=== PATIENT | female | born 1995 | race Asian ===

== ENCOUNTER 2016-06-24 12:54 | Emergency (ER) | payer MEDICAID ==
[2016-06-24] MEDS ORDERED: Acetaminophen 500 MG TAB ONE (14:03)
[2016-06-24 14:07] LABS: URINE COLOR ORANGE
[2016-06-24 14:08] LABS: URINE BILIRUBIN SMALL (NEGATIVE); URINE BLOOD SMALL (NEGATIVE); URINE GLUCOSE (UA) 100 mg/dL (NEGATIVE); URINE KETONE TRACE mg/dL (NEGATIVE); URINE PROTEIN 100 mg/dL (NEGATIVE)
[2016-06-24 14:10] LABS: URINE WBC 25-50 /hpf (0-5)
[2016-06-24 14:11] LABS: URINE BACTERIA MODERATE /hpf (NONE SEEN); URINE EPITHELIAL CELLS MODERATE /lpf (FEW)
[2016-06-24 14:15] LABS: % LYMPHOCYTES 4.6 % (20.0-50.0); % MONOCYTES 5.1 % (2.0-10.0); % NEUTROPHILS 89.8 % (40.0-80.0); HEMATOCRIT 37.9 % (35.0-45.0); HEMOGLOBIN 13.1 gm/dL (11.7-15.5); MEAN CELL VOLUME 83.4 fl (81-100); MEAN CORPUSCULAR HEMOGLOBIN 28.8 pg (27.0-31.0); MEAN CORPUSCULAR HGB CONC 34.5 pg (28.0-36.0); MEAN PLATELET VOLUME 7.9 fl; NEUTROPHILE ABSOLUTE 15.7 Th/cmm (1.8-8.0); PLATELET COUNT 281 Th/cmm (150-400); RED BLOOD COUNT 4.54 Mil/cmm (3.80-5.10); RED CELL DISTRIBUTION WIDTH 11.9 % (11.5-20.0)
[2016-06-24 14:21] LABS: INR 0.97 (0.5-1.4); PROTHROMBIN TIME (TEST) 10.1 SECONDS (9.5-11.5)
[2016-06-24 14:23] LABS: WHITE BLOOD COUNT 17.5 Th/cmm (4.8-10.8)
[2016-06-24 14:24] LABS: ALB/GLOB RATIO 1.3 (1.0-1.8); ALKALINE PHOSPHATASE 57 U/L (34-104); ANION GAP 12.8 (7.0-16.0); BILIRUBIN,TOTAL 0.8 mg/dL (0.3-1.0); BUN - UREA NITROGEN 10 mg/dL (7-25); BUN/CREATININE RATIO 16.7; CALCIUM SERUM 9.3 mg/dL (8.6-10.3); CARBON DIOXIDE 24.7 mEq/L (21.0-31.0); CHLORIDE 100 mEq/L (98-107); CREATININE - SERUM 0.6 mg/dL (0.6-1.2); GLUCOSE 100 mg/dL (70-105); POTASSIUM SERUM 3.5 mEq/L (3.5-5.1); SGOT 13 U/L (13-39); SGPT/ALT 10 U/L (7-52); SODIUM SERUM 134 mEq/L (136-145)
--- NOTE | 2016-06-24 14:36 | ED Physician Chart ---
Chief Complaint/HPI - Patient Information Date Seen:: 06/24/16 Time Seen:: 14:10 Chief Complaint:: BLOOD IN URINE History of Present Illness:: THIS IS A 20 YO FEMALE WITH BLOOD IN HER URINE AND TREATED WITH AZO BY HERSELF. SHE DENIES , VAGINAL DISCHARGE AND VOMITING. SHE DENIES FEVER COUGH AND SOB. SHE ADMITS TO PAINFUL URINATION. Allergies:: Allergies Allergy/AdvReac Type Severity Reaction Status Date / Time No Known Allergies Allergy Verified 06/24/16 14:18 Vitals:: Vital Signs - 8 hr 06/24/16 14:06 Temp 101.8 F HR 130 RR 16 BP 132/72 O2 Sat % 98 Historian:: Patient Review:: Nurse's Note Reviewed Review of Systems - Review of Systems General/Constitutional: Fever, No chills, No weight loss, No weakness, No diaphoresis, No edema, No loss of appetite Skin: No skin lesions, No rash, No bruising Head: No headache, No light-headedness Eyes: No loss of vision, No pain, No diplopia ENT: No earache, No nasal drainage, No sore throat, No tinnitus Neck: No neck pain, No swelling, No thyromegaly, No stiffness, No mass noted Cardio Vascular: No chest pain, No palpitations, No PND, No orthopnea, No edema Pulmonary: No SOB, No cough, No sputum, No wheezing GI: No nausea, No vomiting, No diarrhea, No pain, No melena, No hematochezia, No constipation, No hematemesis G/U: No dysuria, No frequency, Hematuria Musculoskeletal: No bone or joint pain, No back pain, No muscle pain Endocrine: No polyuria, No polydipsia Psychiatric: No prior psych history, No depression, No anxiety, No suicidal ideation Hematopoietic: No bruising, No lymphadenopathy Allergic/Immuno: No urticaria, No angioedema Neurological: No syncope, No focal symptoms, No weakness, No paresthesia, No headache, No seizure, No dizziness, No confusion, No vertigo Family Medical History - Family Member Mother History Unknown: Yes Hx Family Diabetes: Yes Physical Exam - Physical Examination General/Constitutional: Awake, Well-developed, well-nourished, Alert, No distress, GCS 15, Non-toxic appearing, Ambulatory Head: Atraumatic Eyes: Lids, conjuctiva normal, PERRL, EOMI Skin: Nl inspection, No rash, No skin lesions, No ecchymosis, Well hydrated, No lymphadenopathy ENMT: External ears, nose nl, Nasal exam nl, Lips, teeth, gums nl Neck: Nontender, Full ROM w/o pain, No JVD, No nuchal rigidity, No bruit, No mass, No stridor Respiratory: Nl effort/Exclusion, Clear to Auscultation, No Wheeze/Rhonchi/Rales Cardio Vascular: RRR, No murmur, gallop, rubs, NL S1 S2 GI: No tenderness/rebounding/guarding, No organomegaly, No hernia, Normal BS's, Nondistended, No mass/bruits, No McBurney tenderness : No CVA tenderness Other comments:: BLADDER AREA TENDERNESS Extremities: No tenderness or effusion, Full ROM, normal strength in all extremities, No edema, Normal digits & nails Neuro/Psych: Alert/oriented, DTR's symmetric, Normal sensory exam, Normal motor strength, Judgement/insight normal, Mood normal, Normal gait, No focal deficits Misc: normal gait, Normal back, No paraspinal tenderness Labs/Radiology/EKG Results - Lab Results Results: Laboratory Tests 06/24/16 06/24/16 06/24/16 13:34 13:34 14:00 WBC RBC Hgb Hct MCV MCH MCHC Differential RDW Plt Count MPV Neutrophils % Lymphocytes % Monocytes % PT 10.1 INR 0.97 PTT (Actin FS) 24.7 L Sodium Potassium Chloride Carbon Dioxide Anion Gap BUN Creatinine Est GFR ( Amer) Est GFR (Non-Af Amer) BUN/Creatinine Ratio Glucose Calcium Total Bilirubin AST ALT Alkaline Phosphatase Total Protein Albumin Globulin Albumin/Globulin Ratio Urine Source CLEAN C Urine Color ORANGE Urine Clarity SLIGHT HAZY Urine pH 7.0 Ur Specific [place] 1.020 Urine Protein 100 H Urine Glucose (UA) 100 H Urine Ketones TRACE Urine Blood SMALL H Urine Nitrate POSITIVE H Urine Bilirubin SMALL H Urine Urobilinogen 2.0 Ur Leukocyte Esterase LARGE H Urine RBC 2-5 Urine WBC 25-50 H Ur Epithelial Cells MODERATE Urine Bacteria MODERATE Urine Test NEGATIVE 06/24/16 06/24/16 14:00 14:00 WBC 17.5 H RBC 4.54 Hgb 13.1 Hct 37.9 MCV 83.4 MCH 28.8 MCHC Differential 34.5 RDW 11.9 Plt Count 281 MPV 7.9 Neutrophils % 89.8 H Lymphocytes % 4.6 L Monocytes % 5.1 PT INR PTT (Actin FS) Sodium 134 L Potassium 3.5 Chloride 100 Carbon Dioxide 24.7 Anion Gap 12.8 BUN 10 Creatinine 0.6 Est GFR ( Amer) > 60.0 Est GFR (Non-Af Amer) > 60.0 BUN/Creatinine Ratio 16.7 Glucose 100 Calcium 9.3 Total Bilirubin 0.8 AST 13 ALT 10 Alkaline Phosphatase 57 Total Protein 7.9 Albumin 4.5 Globulin 3.4 Albumin/Globulin Ratio 1.3 Urine Source Urine Color Urine Clarity Urine pH Ur Specific [place] Urine Protein Urine Glucose (UA) Urine Ketones Urine Blood Urine Nitrate Urine Bilirubin Urine Urobilinogen Ur Leukocyte Esterase Urine RBC Urine WBC Ur Epithelial Cells Urine Bacteria Urine Test ED Septic Shock - . Is Septic Shock (SBP<90, OR Lactate>4 mmol\L) present?: No - <6hrs of presentation: Vital Signs: Vital Signs - 8 hr 06/24/16 14:06 Temp 101.8 F HR 130 RR 16 BP 132/72 O2 Sat % 98 Reassessment (Disposition) - Reassessment Reassessment Condition:: Improved - Diagnosis Diagnosis:: URINARY TRACT INFECTION - Aftercare/Follow up Instructions Aftercare/Follow-Up Instructions:: Counseled pt regarding lab results/diagnosis & need follow up, Refer to Discharge Instructions, Counseled pt & family regarding lab results/diagnosis & need follow up - Patient Disposition Discharge/Transfer:: Home Condition at Disposition:: Improved ED Discharge Plan - Patient Disposition Admit/Discharge/Transfer: PT DISCHARGED HOME Condition at Disposition: Improved Instructions: Urinary Retention, Acute, Female, Urinary Tract Infection, Easy- to-Read Forms: Work Release Form
--- NOTE | 2016-06-24 14:41 | ED Physician Chart ---
Female Urogenital HPI - General Chief complaint: Urinary Burning Stated complaint: NAUSEA,FEVER - Related Data Home Medications Medication Instructions Recorded Confirmed Ibuprofen [Advil] 200 mg PO PRN PRN 07/24/15 07/24/15 Previous Rx's Medication Instructions Recorded Sulfamethoxazole/TMP [Bactrim DS] 1 tab PO BID #20 tab 07/24/15 Allergies Allergy/AdvReac Type Severity Reaction Status Date / Time No Known Allergies Allergy Verified 06/24/16 14:18 Family Medical History - Family Member Mother History Unknown: Yes Hx Family Diabetes: Yes Course Vital Signs Temp 101.8 F 06/24/16 14:06 HR 130 06/24/16 14:06 RR 16 06/24/16 14:06 BP 132/72 06/24/16 14:06 O2 Sat % 98 06/24/16 14:06 Temp 101.8 F 06/24/16 14:06 HR 130 06/24/16 14:06 RR 16 06/24/16 14:06 BP 132/72 06/24/16 14:06 O2 Sat % 98 06/24/16 14:06 Urogenital-Female - Lab Data Result diagrams: 06/24/16 14:00 06/24/16 14:00 Lab Results 06/24/16 06/24/16 06/24/16 Range/Units 13:34 13:34 14:00 WBC (4.8-10.8) Th/cmm RBC (3.80-5.10) Mil/cmm Hgb (11.7-15.5) gm/dL Hct (35.0-45.0) % MCV (81-100) fl MCH (27.0-31.0) pg MCHC Differential (28.0-36.0) pg RDW (11.5-20.0) % Plt Count (150-400) Th/cmm MPV fl Neutrophils % (40.0-80.0) % Lymphocytes % (20.0-50.0) % Monocytes % (2.0-10.0) % PT 10.1 (9.5-11.5) SECONDS INR 0.97 (0.5-1.4) PTT (Actin FS) 24.7 L (26.0-38.0) SECONDS Sodium (136-145) mEq/L Potassium (3.5-5.1) mEq/L Chloride (98-107) mEq/L Carbon Dioxide (21.0-31.0) mEq/L Anion Gap (7.0-16.0) BUN (7-25) mg/dL Creatinine (0.6-1.2) mg/dL Est GFR ( Amer) (>90) ml/min Est GFR (Non-Af Amer) ml/min BUN/Creatinine Ratio Glucose (70-105) mg/dL Calcium (8.6-10.3) mg/dL Total Bilirubin (0.3-1.0) mg/dL AST (13-39) U/L ALT (7-52) U/L Alkaline Phosphatase (34-104) U/L Total Protein (6.0-8.3) gm/dL Albumin (3.7-5.3) gm/dL Globulin gm/dL Albumin/Globulin Ratio (1.0-1.8) Urine Source CLEAN C Urine Color ORANGE Urine Clarity SLIGHT HAZY (CLEAR) Urine pH 7.0 Ur Specific [place] 1.020 (1.005-1.030) Urine Protein 100 H (NEGATIVE) mg/dL Urine Glucose (UA) 100 H (NEGATIVE) mg/dL Urine Ketones TRACE (NEGATIVE) mg/dL Urine Blood SMALL H (NEGATIVE) Urine Nitrate POSITIVE H (NEGATIVE) Urine Bilirubin SMALL H (NEGATIVE) Urine Urobilinogen 2.0 (0.2 - 1.0) E.U./dL Ur Leukocyte Esterase LARGE H (NEGATIVE) Urine RBC 2-5 (0-5) /hpf Urine WBC 25-50 H (0-5) /hpf Ur Epithelial Cells MODERATE (FEW) /lpf Urine Bacteria MODERATE (NONE SEEN) /hpf Urine Test NEGATIVE 06/24/16 06/24/16 Range/Units 14:00 14:00 WBC 17.5 H (4.8-10.8) Th/cmm RBC 4.54 (3.80-5.10) Mil/cmm Hgb 13.1 (11.7-15.5) gm/dL Hct 37.9 (35.0-45.0) % MCV 83.4 (81-100) fl MCH 28.8 (27.0-31.0) pg MCHC Differential 34.5 (28.0-36.0) pg RDW 11.9 (11.5-20.0) % Plt Count 281 (150-400) Th/cmm MPV 7.9 fl Neutrophils % 89.8 H (40.0-80.0) % Lymphocytes % 4.6 L (20.0-50.0) % Monocytes % 5.1 (2.0-10.0) % PT (9.5-11.5) SECONDS INR (0.5-1.4) PTT (Actin FS) (26.0-38.0) SECONDS Sodium 134 L (136-145) mEq/L Potassium 3.5 (3.5-5.1) mEq/L Chloride 100 (98-107) mEq/L Carbon Dioxide 24.7 (21.0-31.0) mEq/L Anion Gap 12.8 (7.0-16.0) BUN 10 (7-25) mg/dL Creatinine 0.6 (0.6-1.2) mg/dL Est GFR ( Amer) > 60.0 (>90) ml/min Est GFR (Non-Af Amer) > 60.0 ml/min BUN/Creatinine Ratio 16.7 Glucose 100 (70-105) mg/dL Calcium 9.3 (8.6-10.3) mg/dL Total Bilirubin 0.8 (0.3-1.0) mg/dL AST 13 (13-39) U/L ALT 10 (7-52) U/L Alkaline Phosphatase 57 (34-104) U/L Total Protein 7.9 (6.0-8.3) gm/dL Albumin 4.5 (3.7-5.3) gm/dL Globulin 3.4 gm/dL Albumin/Globulin Ratio 1.3 (1.0-1.8) Urine Source Urine Color Urine Clarity (CLEAR) Urine pH Ur Specific [place] (1.005-1.030) Urine Protein (NEGATIVE) mg/dL Urine Glucose (UA) (NEGATIVE) mg/dL Urine Ketones (NEGATIVE) mg/dL Urine Blood (NEGATIVE) Urine Nitrate (NEGATIVE) Urine Bilirubin (NEGATIVE) Urine Urobilinogen (0.2 - 1.0) E.U./dL Ur Leukocyte Esterase (NEGATIVE) Urine RBC (0-5) /hpf Urine WBC (0-5) /hpf Ur Epithelial Cells (FEW) /lpf Urine Bacteria (NONE SEEN) /hpf Urine Test Disposition Instructions: Urinary Retention, Acute, Female, Urinary Tract Infection, Easy- to-Read Forms: Work Release Form ED Discharge Plan - Patient Disposition Instructions: Urinary Retention, Acute, Female, Urinary Tract Infection, Easy- to-Read Forms: Work Release Form
== END 2016-06-24 14:15 | disposition home or self-care (01) ==
LOC: ER 12:54
DX: N39.0 Urinary tract infection, site not specified (principal)
CPT/HCPCS: 99284; 96372; 36415; 85007; 85027; 85610; 85730; 87086; 81001; 81025; 80053; 87040 ×2; J0696; J7030; Z7502; Z7610

== ENCOUNTER 2016-11-18 19:00 | Emergency (ER) | payer MEDICAID ==
--- NOTE | 2016-11-25 11:56 | ED Physician Chart ---
Chief Complaint/HPI - Patient Information Date Seen:: 11/18/16 Time Seen:: 19:18 Chief Complaint:: SORE THROAT History of Present Illness:: THIS IS A 21 YO FEMALE WITH A SORE THROAT THAT STARTED THIS MORNINGS. SHE ADMITS TO SOME FEVER AND DENIES A COUGH. SHE IS CONCERNED ALSO ABOUT HER HAVING FREQUENT TOOTHACHES. Allergies:: Allergies Allergy/AdvReac Type Severity Reaction Status Date / Time No Known Allergies Allergy Verified 06/24/16 14:18 Historian:: Patient Review:: Nurse's Note Reviewed Review of Systems - Review of Systems General/Constitutional: Fever ENT: Sore throat Past Medical History - Past Medical History Obtainable: Yes Past Medical History: No significant medical hx Family History: None Social History: Non Smoker, No Alcohol, No Drug Use Surgical History: None Psychiatricy History: None Medication: Reviewed Family Medical History - Family Member Mother History Unknown: Yes Hx Family Diabetes: Yes Physical Exam - Physical Examination General/Constitutional: Awake, Well-developed, well-nourished, Alert, No distress, GCS 15, Non-toxic appearing, Ambulatory Head: Atraumatic Eyes: Lids, conjuctiva normal, PERRL, EOMI Skin: Nl inspection, No rash, No skin lesions, No ecchymosis, Well hydrated, No lymphadenopathy ENMT: External ears, nose nl, Nasal exam nl, Lips, teeth, gums nl, Oropharynx nl Neck: Nontender, Full ROM w/o pain, No JVD, No nuchal rigidity, No bruit, No mass, No stridor Respiratory: Nl effort/Exclusion, Clear to Auscultation, No Wheeze/Rhonchi/Rales Cardio Vascular: RRR, No murmur, gallop, rubs, NL S1 S2 GI: No tenderness/rebounding/guarding, No organomegaly, No hernia, Normal BS's, Nondistended, No mass/bruits, No McBurney tenderness : No CVA tenderness Extremities: No tenderness or effusion, Full ROM, normal strength in all extremities, No edema, Normal digits & nails Neuro/Psych: Alert/oriented, DTR's symmetric, Normal sensory exam, Normal motor strength, Judgement/insight normal, Mood normal, Normal gait, No focal deficits Misc: normal gait, Normal back, No paraspinal tenderness Assessment - Assessment General Assessment: PHARYNGITIS ED Septic Shock - . Is Septic Shock (SBP<90, OR Lactate>4 mmol\L) present?: No Reassessment (Disposition) - Diagnosis Diagnosis:: ACUTE PHARYNGITIS - Aftercare/Follow up Instructions Aftercare/Follow-Up Instructions:: Counseled pt regarding lab results/diagnosis & need follow up, Refer to Discharge Instructions, Counseled pt & family regarding lab results/diagnosis & need follow up - Patient Disposition Discharge/Transfer:: Home Condition at Disposition:: Unchanged ED Discharge Plan - Patient Disposition Admit/Discharge/Transfer: PT DISCHARGED HOME Condition at Disposition: Stable Instructions: Viral and Bacterial Pharyngitis, Sore Throat Forms: Work Release Form
== END 2016-11-18 20:30 | disposition home or self-care (01) ==
LOC: ER 19:00
DX: J02.9 Acute pharyngitis, unspecified (principal); K08.89 Other specified disorders of teeth and supporting structures
CPT/HCPCS: 99283; 96372; J0696; Z7502